=== PATIENT | male | born 2005 | race Hispanic/Latino ===

== ENCOUNTER 2024-06-20 13:21 | Emergency (ER) | payer OTHER, SELFPAY ==
[2024-06-20 13:43] VITALS: BP 136/84; PULSE 79; RESP 18; TEMP 36.9; O2SAT 97; BMI 23.0
[2024-06-20 14:01] LABS: Strep Grp A by PCR Rapid Negative (Negative)
--- NOTE | 2024-06-20 14:49 | ED.URI ---
HPI - URI/Sore Throat <Adrianne Eller PA-C - Last Filed: 06/20/24 17:40> General Chief Complaint: Upper Respiratory Symptoms Stated Complaint: sore throat Time Seen by Provider: 06/20/24 14:25 Source: patient Mode of arrival: Ambulatory History of Present Illness HPI Narrative: Salbador Louie is a pleasant 19-year-old male with no reported past medical history who presents to the emergency department for sore throat x4 days and itching when he urinates x1 week. Sore throat has been present since Thursday with no fever. He believes he has had a tonsillectomy. He is using ibuprofen for pain which helps temporarily. Patient also reports that he has some itching when he pees but there is no pain. Occasional white/clear discharge with the penis. States that he was sexually active with a female about 1 month ago. He has not concerned for STDs reports he had chlamydia in the past and it did not present like this. Denies any lesions or skin changes of the penis, testicular pain, abdominal pain, nausea, vomiting, diarrhea. Related Data Previous Rx's Medication Instructions Recorded doxycycline hyclate 100 mg capsule 100 mg PO BID 7 days #14 caps 06/20/24 Allergies Allergy/AdvReac Type Severity Reaction Status Date / Time No Known Drug Allergies Allergy Verified 06/20/24 13:42 Review of Systems <Adrianne Eller PA-C - Last Filed: 06/20/24 17:40> Review of Systems ROS Unobtainable: All systems reviewed & are unremarkable except as noted in HPI and below Patient History <Adrianne Eller PA-C - Last Filed: 06/20/24 17:40> Social History Smoking Status: Current every day smoker Smoking Status: Current every day smoker tobacco type: vaping Exam <Adrianne Eller PA-C - Last Filed: 06/20/24 17:40> Narrative Exam Narrative: GENERAL: 19 year old patient appears stated age. Well-developed patient, in no acute distress. HEAD: Atraumatic. Normocephalic. EYES:No scleral icterus. No injection or drainage. ENT: Nose without bleeding, purulent drainage. Throat with posterior oropharyngeal erythema. No tonsils. Postnasal drip present. Airway patent. NECK: Trachea midline. Cervical ROM intact. CARDIOVASCULAR: Regular rate and rhythm. RESPIRATORY: ?Nonlabored respirations. ?Speaking in clear, full sentences. ?Clear to auscultation. Breath sounds equal bilaterally. No wheezes, rales, or rhonchi. ? NEURO: AOx3. ?Clear speech. ?Moves all 4 extremities appropriately. SKIN: No rash or erythema of visible areas Initial Vital Signs Initial Vital Signs: Vital Signs Temperature 98.4 F 06/20/24 13:43 Pulse Rate 79 06/20/24 13:43 Respiratory Rate 18 06/20/24 13:43 Blood Pressure 136/84 06/20/24 13:43 Pulse Oximetry 97 06/20/24 13:43 Oxygen Delivery Method Room Air 06/20/24 13:43 <Maddie Butler DO - Last Filed: 06/20/24 19:00> Initial Vital Signs Initial Vital Signs: Vital Signs Temperature 98.4 F 06/20/24 13:43 Pulse Rate 79 06/20/24 13:43 Respiratory Rate 18 06/20/24 13:43 Blood Pressure 136/84 06/20/24 13:43 Pulse Oximetry 97 06/20/24 13:43 Oxygen Delivery Method Room Air 06/20/24 13:43 Course <Adrianne Eller PA-C - Last Filed: 06/20/24 17:40> Orders Ordered: ED Orders 06/20/24 13:48 Strep Grp A by PCR Rapid Stat Throat Culture Stat 06/20/24 14:45 Urinalysis and Microscopic Stat 06/20/24 14:59 Chlamydia Gonorrhea PCR -URINE Stat 06/20/24 15:02 Covid-19 + FLU A/B + RSV - PCR Stat 06/20/24 15:10 Monotest Stat Discontinued Medications Doxycycline Hyclate (Doxycycline Hyclate 100 Mg Tablet) 100 mg PO NOW ONE Stop: 06/20/24 17:34 Last Admin: 06/20/24 17:39 Dose: 100 mg Documented By: CTS Vital Signs Vital signs: Vital Signs - 8 hr 06/20/24 13:43 06/20/24 17:44 Temperature 98.4 F Pulse Rate 79 77 Respiratory Rate 18 16 Blood Pressure 136/84 124/74 Pulse Oximetry 97 99 Oxygen Delivery Method Room Air Room Air <Maddie Butler DO - Last Filed: 06/20/24 19:00> Orders Ordered: ED Orders 06/20/24 13:48 Strep Grp A by PCR Rapid Stat Throat Culture Stat 06/20/24 14:45 Urinalysis and Microscopic Stat 06/20/24 14:59 Chlamydia Gonorrhea PCR -URINE Stat 06/20/24 15:02 Covid-19 + FLU A/B + RSV - PCR Stat 06/20/24 15:10 Monotest Stat Discontinued Medications Doxycycline Hyclate (Doxycycline Hyclate 100 Mg Tablet) 100 mg PO NOW ONE Stop: 06/20/24 17:34 Last Admin: 06/20/24 17:39 Dose: 100 mg Documented By: CTS Vital Signs Vital signs: Vital Signs - 8 hr 06/20/24 13:43 06/20/24 17:44 Temperature 98.4 F Pulse Rate 79 77 Respiratory Rate 18 16 Blood Pressure 136/84 124/74 Pulse Oximetry 97 99 Oxygen Delivery Method Room Air Room Air MDM - URI/Sore Throat <Adrianne Eller PA-C - Last Filed: 06/20/24 17:40> Medical Records Attestation: I reviewed the patient's medical records. Lab Data Labs: Lab Results 06/20/24 06/20/24 06/20/24 Range/Units 13:48 14:45 14:59 Urine Color Yellow Urine Appearance Clear Urine pH 6.5 (4.5-8.0) Ur Specific [place] 1.020 (1.000-1.035) Urine Protein Negative (Negative) Urine Glucose (UA) Negative (Negative) g/dL Urine Ketones Negative (NEGATIVE) Urine Occult Blood Negative (Negative) Urine Nitrate Negative (Negative) Urine Bilirubin Negative (NEGATIVE) Urine Urobilinogen 0.2 (0.2) E.U./dL Ur Leukocyte Esterase Negative (NEGATIVE) Urine RBC None seen (0-5/HPF) Urine WBC None seen (0-5/HPF) Ur Squamous Epith Cells None seen (0-5/HPF) Urine Bacteria None seen (None) Ur Culture Indicated? Cult not indicated Vol Urine Centrifuged 10ml (spun) Ur Chlamydia DNA (PCR) Detected H SARS-CoV-2 (PCR) (Negative) Monoscreen (Negative) Influenza A (RT-PCR) (NEGATIVE) Influenza B (RT-PCR) (NEGATIVE) RSV (PCR) (Negative) Group A Strep (PCR) Negative (Negative) N gonorrhoeae DNA (PCR) Not detected 06/20/24 06/20/24 Range/Units 15:02 15:10 Urine Color Urine Appearance Urine pH (4.5-8.0) Ur Specific [place] (1.000-1.035) Urine Protein (Negative) Urine Glucose (UA) (Negative) g/dL Urine Ketones (NEGATIVE) Urine Occult Blood (Negative) Urine Nitrate (Negative) Urine Bilirubin (NEGATIVE) Urine Urobilinogen (0.2) E.U./dL Ur Leukocyte Esterase (NEGATIVE) Urine RBC (0-5/HPF) Urine WBC (0-5/HPF) Ur Squamous Epith Cells (0-5/HPF) Urine Bacteria (None) Ur Culture Indicated? Vol Urine Centrifuged Ur Chlamydia DNA (PCR) SARS-CoV-2 (PCR) Negative (Negative) Monoscreen Negative (Negative) Influenza A (RT-PCR) Flu a negative (NEGATIVE) Influenza B (RT-PCR) Flu b negative (NEGATIVE) RSV (PCR) Negative (Negative) Group A Strep (PCR) (Negative) N gonorrhoeae DNA (PCR) [facility] Narrative Medical decision making narrative: 19-year-old male with no reported past medical history who presents to the emergency department for sore throat x4 days and itching when he urinates x1 week. Differential diagnosis includes but is not limited to strep pharyngitis, viral pharyngitis, mononucleosis, STI of throat, STI urethritis, UTI, etc. On exam patient is in no acute distress, nontoxic appearing, all vital signs within normal limits. He is here for 2 separate chief complaints. He is posterior oropharyngeal erythema and postnasal drip however no tonsils. He defers exam but states that he is having some itching with urination but no dysuria. We will check rapid strep, viral swab, throat culture, urinalysis, urine gonorrhea/chlamydia. Rapid strep negative. [place] screen negative. Flu/COVID/RSV negative. Urinalysis negative. Gonorrhea negative. Urine chlamydia positive. We will treat chlamydia with doxycycline b.i.d. x7 days. Discussed with the patient that sore throat could be related to chlamydia infection as well or could be something separate. Throat culture is pending. While gonorrhea is negative, did discuss empiric treatment with IM Rocephin at this time, he declines. Recommended follow up with PCP for additional STI testing. Advised all partners be tested and treated as well. Recommended rest, hydration, side effects of doxycycline, ibuprofen/Tylenol for pain. ED return precautions reviewed with the patient. He verbalized understanding of all information is agreeable to the plan, he is stable for discharge home. Antibiotics sent to pharmacy of choice. <Maddie Butler, DO - Last Filed: 06/20/24 19:00> Lab Data Labs: Lab Results 06/20/24 06/20/24 06/20/24 Range/Units 13:48 14:45 14:59 Urine Color Yellow Urine Appearance Clear Urine pH 6.5 (4.5-8.0) Ur Specific [place] 1.020 (1.000-1.035) Urine Protein Negative (Negative) Urine Glucose (UA) Negative (Negative) g/dL Urine Ketones Negative (NEGATIVE) Urine Occult Blood Negative (Negative) Urine Nitrate Negative (Negative) Urine Bilirubin Negative (NEGATIVE) Urine Urobilinogen 0.2 (0.2) E.U./dL Ur Leukocyte Esterase Negative (NEGATIVE) Urine RBC None seen (0-5/HPF) Urine WBC None seen (0-5/HPF) Ur Squamous Epith Cells None seen (0-5/HPF) Urine Bacteria None seen (None) Ur Culture Indicated? Cult not indicated Vol Urine Centrifuged 10ml (spun) Ur Chlamydia DNA (PCR) Detected H SARS-CoV-2 (PCR) (Negative) Monoscreen (Negative) Influenza A (RT-PCR) (NEGATIVE) Influenza B (RT-PCR) (NEGATIVE) RSV (PCR) (Negative) Group A Strep (PCR) Negative (Negative) N gonorrhoeae DNA (PCR) Not detected 06/20/24 06/20/24 Range/Units 15:02 15:10 Urine Color Urine Appearance Urine pH (4.5-8.0) Ur Specific [place] (1.000-1.035) Urine Protein (Negative) Urine Glucose (UA) (Negative) g/dL Urine Ketones (NEGATIVE) Urine Occult Blood (Negative) Urine Nitrate (Negative) Urine Bilirubin (NEGATIVE) Urine Urobilinogen (0.2) E.U./dL Ur Leukocyte Esterase (NEGATIVE) Urine RBC (0-5/HPF) Urine WBC (0-5/HPF) Ur Squamous Epith Cells (0-5/HPF) Urine Bacteria (None) Ur Culture Indicated? Vol Urine Centrifuged Ur Chlamydia DNA (PCR) SARS-CoV-2 (PCR) Negative (Negative) Monoscreen Negative (Negative) Influenza A (RT-PCR) Flu a negative (NEGATIVE) Influenza B (RT-PCR) Flu b negative (NEGATIVE) RSV (PCR) Negative (Negative) Group A Strep (PCR) (Negative) N gonorrhoeae DNA (PCR) Discharge Plan Departure Patient Disposition: Home Clinical Impression: Chlamydia Pharyngitis Qualifiers: Pharyngitis/tonsillitis etiology: unspecified etiology Qualified Code(s): J02.9 - Acute pharyngitis, unspecified Instructions: DI for Chlamydia Activity Restrictions/Additional Instructions: Dear Mr. Louie, Thank you for coming to the emergency department today. Today your urine test was positive for chlamydia which is a sexually transmitted infection. Please complete the full 7 day course of doxycycline to treat this infection. Avoid sexual intercourse for at least 7 days, until all symptoms have resolved, and until partners have been treated as well. It is very important that any sexual partners you may have had within the past 60 days are tested/treated as well. It is possible that this infection is also causing her sore throat, or you may also have a separate for infection. A throat culture was obtained and you will be called in about 3 days if you need any additional antibiotics. You tested negative for gonorrhea, COVID, flu, RSV, strep throat, mononucleosis. Please take Ibuprofen (Motrin/Advil) or Acetaminophen (Tylenol) for pain. These are available over the counter. You may take Ibuprofen 600 mg every 8 hours with food for pain. You may also take Acetaminophen 650 mg every 4-6 hours for pain. Do not exceed 3000 mg of Tylenol a day as this can cause liver damage. Do not drink alcohol with either of these medications. Please drink warm tea with honey to help with sore throat. Please follow up with your primary care doctor within the next 2-3 days for ER follow-up. (If you do not have a PCP you can call [phone]. ?to schedule an appointment with an [facility] Primary Care Provider) IF YOU DEVELOP ANY NEW OR WORSENING SYMPTOMS, RETURN TO THE ER! Please read the attached instructions, they highlight more specific treatments and interventions for you at home. Thank you for letting me participate in your care, Adrianne Eller PA-C Prescriptions: New doxycycline hyclate 100 mg capsule 100 mg PO BID 7 Days Qty: 14 0RF Stand Alone Forms: Patient Portal/API/Survey ED Sign-out <Maddie Butler DO - Last Filed: 06/20/24 19:00> Cosign ED Attending Cosignature Attestation: I was immediately available in the department for consultation.
[2024-06-20 15:02] LABS: Appearance Urine UA CLEAR; Bilirubin Urine UA NEGATIVE (NEGATIVE); Color Urine UA YELLOW; Glucose Urine UA NEGATIVE (Negative); Ketones Urine UA NEGATIVE (NEGATIVE); Leukocyte Esterase Urine UA NEGATIVE (NEGATIVE); Nitrite Urine UA NEGATIVE (Negative); Occult Blood Urine UA NEGATIVE (Negative); Protein Urine UA NEGATIVE (Negative); Urobilinogen Urine UA 0.2 E.U./dL (0.2); pH Urine UA 6.5 (4.5-8.0)
[2024-06-20 15:08] LABS: Bacteria Urine None Seen; Culture Indicated Urine Cult Not Indicated; RBC Urine None Seen (0-5/HPF); Squamous Epithelial Cell Urine None Seen (0-5/HPF); Urine Volume 10mL (spun); WBC Urine None Seen (0-5/HPF)
[2024-06-20 15:35] LABS: Monotest Negative (Negative)
[2024-06-20 15:45] LABS: Influenza A - CEPHEID Flu A NEGATIVE (NEGATIVE); Influenza B - CEPHEID Flu B NEGATIVE (NEGATIVE); Respiratory Syncytial Virus Negative (Negative)
[2024-06-20 15:57] LABS: COVID-19 CEPHEID 4-PLEX PCR Negative (Negative)
[2024-06-20 17:15] LABS: Urine N gonorrhoeae NOT DETECTED
[2024-06-20 17:16] LABS: Urine Chlamydia DETECTED
[2024-06-20] MEDS: DOXYCYCLINE HYCLATE 100 MG TABLET PO (17:39)
[2024-06-20 17:44] VITALS: BP 124/74; PULSE 77; RESP 16; O2SAT 99
== END 2024-06-20 17:45 | disposition home or self-care (01) ==
PROVIDERS: Emergency Provider Physician Assistant
DX: J02.9 Acute pharyngitis, unspecified (principal); A74.9 Chlamydial infection, unspecified; F17.290 Nicotine dependence, other tobacco product, uncomplicated
CPT/HCPCS: 0241U; 36415; 81001; 86318; 87070; 87491; 87591; 87651; 99283